=== PATIENT | female | born 1935 | race Caucasian/White ===

== ENCOUNTER 2020-08-10 09:16 | Inpatient (IN) | payer MEDICARE ==
[~2020-08-10] VITALS: Ht 139.7 cm; Wt 53.1 kg
[2020-08-10] MEDS ORDERED: EFFEXOR XR37.5 M1 PO (09:45)
[2020-08-10] MEDS ORDERED: SYNTHROID,LEVO75 MCG PO (09:46)
[2020-08-10] MEDS ORDERED: LOVASTATIN40 MG PO (09:47)
[2020-08-10] MEDS ORDERED: ZETIA10 MG PO (09:47)
[2020-08-10] MEDS ORDERED: NORVASC5 MG PO (09:48)
--- NOTE | 2020-08-10 11:00 | NUR ---
LIV CONSENT VIA POA/SPOUSE IQRA SANDERS. DISCUSSED WITH POA THAT PATIENT IS A FULL CODE. PATIENT HAS A LIVING WILL PRESENT WANTING TO BE A DNR. REVIEW THE DNR CONSENT FORM. PATIENT IS WANTING PATIENT TO BE A DNRCCA. TO BE DISCUSSED WITH COVERING PHYSICIAN WHEN PATIENT IS ADMITTED ON UNIT.
--- NOTE | 2020-08-10 13:30 | NUR ---
ABIMAEL SANDERS a 84 year old F admitted via stretcher from the ADMITTING as a voluntary admission BY TOSHA. Arrived on unit at 1330. ALLERGIES: NKA. Vital signs are: [id number] 182/90. The client signed the following forms with stated understanding: Authorization For The Release of Medical Information, Clothing List, Consent to Voluntary Admission and Hospitalization, Consent and Release Forms/Receipt of Rights, Acknowledgement of Advance Directive Information, Behavioral Health Consent Form, and Informed Consent of Medications. Admitted under the services of Dr. CHRISTIAN RUVALCABA,[facility]. A search was conducted and hazardous articles were removed. Client was oriented to the unit. WILDER ZELAYA PATIENT IS ALERT TO PERSON WITH CONFUSION. LONG/SHORT TERM MEMORY DEFICITS NOTED. MOOD IS IRRITABLE. DENIES ANY HALLUCINATIONS, DELUSIONS, HI/SI OR PAIN. Q 15 MINUTE SAFETY CHECKS MAINTAINED. 1 PERSON ASSIST WITH ACTIVITIES OF DAILY LIVING. CONTINENT OF BOWEL AND BLADDER. SET UP FOR MEALS, INTAKES VARY DEMENDING ON MOOD.
--- NOTE | 2020-08-10 13:40 | NUR ---
CALL PLACED TO HOSPITALIST CELL NUMBER ONE. SPOKE TO . MADE AWARE OF CONSULT FOR MEDICAL MANAGEMENT. MADE AWARE OF ELEVATED BP 182/90 AND HR 88. PT HAD NORVASC 5MG AT [facility] THIS AM PER PT. PT DENIES CHEST PAIN OR HEADACHE. MADE AWARE PT'S DPOAH WISHES FOR PT'S CODE STATUS TO BE DNRCCA, FORM TO BE SIGNED ON UNIT.
[2020-08-10 13:43] VITALS: BP 182/90
--- NOTE | 2020-08-10 13:50 | NUR ---
JESSICA RN OCCUPATIONAL HEALTH ON UNIT TO SEE PT. DNRCCA SIGNED. REVIEWED BLOOD PRESSURE. REVIEWED REASON FOR ADMISSION.
--- NOTE | 2020-08-10 14:29 | NUR ---
NASAL SWAB COLLECTED FOR COVID 19 TESTING AND SENT TO LAB.
[2020-08-10 15:04] LABS: BILIRUBIN Negative (Negative); BLOOD Negative (Negative); CLARITY Clear (Clear); COLOR Yellow (Yellow); GLUCOSE Negative (Negative); KETONE Negative (Negative); LEUKO ESTERASE 1+ (Negative); NITRITE Negative (Negative)
--- NOTE | 2020-08-10 15:28 | NUR ---
P- CONFUSED. EXTREME MOOD LABILITY. POOR SAFETY AWARENESS. PT BECOMES EXTREMELY AGITATED VERY QUICKLY AND DEMONSTRATES UNSAFE AND AGGRESSIVE BEHAVIORS. I- ORIENTATION, MOOD AND BEHAVIORS ASSESSED. ASSESSED PT FOR SI/HI, INTENT OR PLAN. ASSESSED PT FOR S/S HALLUCINATIONS, PARANOIA OR DELUSIONS. MEDICATIONS GIVEN PER ORDERS. ADMISSION ASSESSMENTS COMPLETED. REDIRECTION AND REORIENTATION PROVIDED. REMINDERS GIVEN RE: SAFETY PRECAUTIONS. R- PT IS ALERT TO PERSON, APPROXIMATE PLACE. PT AWARE SHE IS IN THE HOSPITAL BUT UNABLE TO STATE WHICH ONE. MEMORY GAPS NOTED. RESPS EASY AND EVEN ON ROOM AIR. PT NOTED WITH EXTREME MOOD LABILITY. PT RANGES FROM CRYING/TEARFUL TO YELLING, AGITATED AND AGGRESSIVE WITH VULGAR LANGUAGE. PT DEMONSTRATES POOR SAFETY AWARENESS, ATTEMPTING TO THROW WALKER, UPON REDIRECTION PT BECOMES VERY AGGRESSIVE AND AGITATED. MULTIPLE NONPHARMACOLOGICAL ATTEMPTS TO CALM PT PROVE INEFFECTIVE. PT THROWING ANY ITEMS PROVIDED FOR CALMING SUCH FLUIDS AND BOOKS/MAGAZINES WELL WALKER. PT THEN QUICKLY CRIES AND STATES "I'M SORRY". PT YELLING AT STAFF AND PEERS. SCREAMING UNINTELLIGIBLE PHRASES. UNABLE TO CALM PT. PRN ATIVAN 1MG IM GIVEN TO LEFT DELTOID AT 1528. WILL MONITOR FOR EFFECT. P- PLAN TO CONTINUE CURRENT TREATMENT. MONITOR FOR PT RESPONSE TO MEDICATION. MAINTAIN SAFETY. ATTEMPT TO ENGAGE PT IN [place] GROUPS AND ACTIVITIES. ENCOURAGE MEDICATION COMPLIANCE.
--- NOTE | 2020-08-10 15:38 | NUR ---
PM GROUP PT DID NOT ATTEND AFTERNOON GROUP THERAPY. PT WAS JUST ADMITTED TO THE UNIT AND WAS BEING ORIENTED. PT WAS VERY AGITATED AND WAS IN THE QUIET ROOM FOR DESTIMUALATION. WILL ATTEMPT PT ASSESSMENT TOMORROW AM
[2020-08-10 15:51] LABS: BACTERIA 1+; HYALINE CAST 0-2; RBC 0-2 rbc/hpf (0-2)
--- NOTE | 2020-08-10 16:38 | NUR ---
PATIENT IN CALM DEMEANOR, ASSISTED TO BATHROOM FOR TOILETING NEEDS PRIOR TO DINNER. PATIENT SITTING AT TABLE EATING DINNER. NO LONGER AGITATED AND AGGRESSIVE WITH STAFF. PRN ATIVAN EFFECTIVE.
[2020-08-10 20:00] VITALS: BP 148/74
--- NOTE | 2020-08-10 21:23 | NUR ---
PT ANXIOUS, RESTLESS AND TEARFUL. PROVIDED 1:1 EMOTIONAL SUPPORT, OFFERED TOILETING, AND DIVERSIONAL ACTIVITIES. ALL NON-PHARMACOLOGICAL INTERVENTIONS INEFFECTIVE. PRN ATIVAN 1MG PO GIVEN FOR ANXIETY/RESTLESSNESS.
--- NOTE | 2020-08-10 22:23 | NUR ---
PRN ATIVAN 1MG PO SOMEWHAT EFFECTIVE. PT IS RESTING IN CHAIR AT THIS TIME BUT INTERMITTENTLY STATES, "WHEN AM I GOING HOME. I AM LEAVING TOMORROW I DON'T CARE WHAT THE DOCTOR SAYS." PT 1:1 EMOTIONAL SUPPORT, REDIRECTED AND PROVIDED WITH DIVERSIONAL ACTIVITY WHICH WAS EFFECTIVE.
--- NOTE | 2020-08-11 00:29 | NUR ---
PT HAS NO SAFETY AWARENESS, EDUCATED ON USE OF CALL LIGHT AND WALKER WITHOUT EFFECT. PT CONTINUES GETTING UP TO RESTROOM WITHOUT CALLING FOR ASSISTANCE. ADLS X1 STANDBY ASSIST.
--- NOTE | 2020-08-11 02:49 | NUR ---
PT C/O HEADACHE AND LOW BACK PAIN. PRN TYLENOL 650MG GIVEN AT THIS TIME.
--- NOTE | 2020-08-11 03:49 | NUR ---
PT REMAINS AWAKE, CALM, RESTING IN BED. RESP EASY AND UNLABORED. WHEN ASKED IF PRN TYLENOL WAS EFFECTIVE PT STATED, "OH YES. I FEEL MUCH BETTER NOW." NO FURTHER COMPLAINTS VOICED.
--- NOTE | 2020-08-11 05:42 | NUR ---
PT WITH ZERO HOURS OF SLEEP. 24 HR chart check completed.
--- NOTE | 2020-08-11 06:43 | NUR ---
NOTIFIED DR. TRAYLOR OF MANUAL BP 186/92 PULSE 87. NO COMPPLAINTS VOICED FROM PT. PER DR. TRAYLOR GIVE PTS NORVASC 5MG NOW INSTEAD OF 0900 AND MONITOR.
[2020-08-11 06:56] LABS: BASO % 0.5 % (0.0-1.0); EOS # 0.1 10*3/uL (0.0-0.4); EOS % 2.4 % (1.0-4.0); HEMATOCRIT 40.1 % (37.0-47.0); LYMPH # 1.7 10*3/uL (1.3-4.4); MEAN CELL VOLUME 92.2 fl (81.0-99.0); MEAN CORPUSCULAR HGB 29.4 pg (27.0-31.0); MEAN CORPUSCULAR HGB CONC 31.9 g/dl (33.0-37.0); MEAN PLATELET VOLUME 12.8 fl (9.6-12.3); MONO # 0.4 10*3/uL (0.1-1.0); MONO % 7.1 % (3.0-9.0); NEUT # 3.3 10*3/uL (2.3-7.9); PLATELET COUNT AUTOMATED 157 10*3/uL (130-400); RED BLOOD COUNT 4.35 10*6/uL (4.10-5.10); RED CELL DISTRI WIDTH 12.9 % (0-14.5); WHITE BLOOD COUNT 5.5 10*3/uL (4.8-10.8)
[2020-08-11 07:25] VITALS: BP 162/80; BP 186/92
[2020-08-11 07:27] LABS: CHLORIDE 109 mmol/L (98-107); POTASSIUM 3.5 mmol/L (3.5-5.1); SODIUM 141 mmol/L (136-145)
[2020-08-11 07:33] LABS: VITAMIN D, 25-HYDROXY 27.8 ng/mL (30-100)
--- NOTE | 2020-08-11 07:35 | NUR ---
PHYSICAL THERAPY Screen and PT eval received will follow thank you Sherrell Cabrera PT
[2020-08-11 07:43] LABS: ALBUMIN 3.7 gm/dl (3.1-4.5); ALKALINE PHOSPHATASE 61 U/L (45-117); BUN 13 mg/dl (7-24); CHOLESTEROL 240 mg/dL (<200); CREATININE 0.91 mg/dL (0.55-1.02); HDL CHOLESTEROL 73 mg/dl (40-60); LDL CHOLESTEROL 133 mg/dL (9-159); SGOT/AST 29 IU/L (3-35); SGPT/ALT 20 U/L (12-78); TOTAL PROTEIN 6.9 gm/dL (6.4-8.2); TRIGLYCERIDES 168 mg/dl (<150); VLDL CHOLESTEROL 34 mg/dL (6-40)
--- NOTE | 2020-08-11 08:10 | NUR ---
DR GONZALES ROUNDED ON PT VIA TELEHEALTH, NEW ORDERS RECEIVED.
--- NOTE | 2020-08-11 08:39 | NUR ---
Family meeting held via phone with pt's Nathanael. Further pt hx was provided by Nathanael who shared that pt has had a change in behaviors over the last two weeks. Nathanael stated that the behavior change correlates with a med change made by pt's psychiatrist Dr Fowler. He also shared that pt will sleep for extensive periods of time - up to 3 days at a time with waking only long enough to eat and drink small amounts. Pt has also been refusing to shower. Discussed discharge needs for pt. At this time, Nathanael is wanting pt to return home. An 18 year old great-granddaughter who was raised by pt and Nathanael also resides in the home. Nathanael states that as long as pt's violent behaviors resolve, he and their granddaughter can care for pt.
--- NOTE | 2020-08-11 09:02 | NUR ---
PT NON-COMPLIANT WITH FALL PRECAUTIONS. PT WALKING UP AND DOWN THE CARRIZALES WITHOUT ASSISTANCE, WALKING AROUND HER ROOM WITHOUT ASSISTANCE. PT STATED "I DO THIS AT HOME BY MYSELF WITHOUT ANY TROUBLE." WILL CONTINUE TO ENCOURAGE PT TO BE COMPLIANT WITH FALL PRECAUTIONS.
--- NOTE | 2020-08-11 11:50 | NUR ---
DR SIMEON ON UNIT TO ASSESS PT, LABS AND BP LEVELS REVIEWED, NEW ORDERS RECEIVED. WITNESSED BY 2ND RN CHRISTOFER
--- NOTE | 2020-08-11 14:09 | NUR ---
P: PT MOOD IS DEPRESSED, PT ISOLATIVE TO HER ROOM INTERMITTENTLY THROUHGOUT THE DAY. PT PACING AND RESTLESS AT OTHER TIMES. PT TEARFUL. PT NON-COMPLIANT WITH FALL PRECAUTIONS. I: PROVIDE EMOTIONAL SUPPORT AND 1:1 FOR PT TO VOICE FEELINGS, ENCOURAGE MED COMPLIANCE AND PROVIDE MED EDUCATION, ENCOURAGE GROUP PARTICIPATION AND SOCIALIZATION, ENCOURAGE COMPLIANCE WITH FALL PRECAUTIONS. R: PT ALERT TO PERSON, AND PLACE, KNOWS SHE IS IN THE HOSPITAL. PT MED COMPLIANT WITHOUT DIFFICULTY, MED EDUCATION PROVIDED. PT CONTINUES TO ISOLATE TO HER ROOM AT TIMES, RESTLESS AND PACING AT OTHER TIMES. PT CONTINUES TO BE NON-COMPLIANT WITH FALL PRECAUTIONS, REFUSING STANDY ASSISTANCE WITH AMBULATION, GAIT OCCASIONALLY UNSTEADY, STATING "I DO THIS AT HOME BY MYSELF." NO HALLUCINATIONS OR DELUSIONS NOTED. PT DENIES ANY SUICIDAL THOUGHTS. PT CONTINENT OF BOWEL AND BLADDER. P: MONITOR PT BEHAVIORS ON Q15 MIN SAFETY CHECKS, ENCOURAGE MED COMPLIANCE AND PROVIDE MED EDUCATION, ENCOURAGE GROUP PARTICIPATION AND SOCIALZIATION, PROVIDE EMOTIONAL SUPPORT AND 1:1 FOR PT TO VOICE FEELINGS, RE-ORIENT NEEDED.
--- NOTE | 2020-08-11 14:36 | NUR ---
PT REFUSED FULL SHOWER THIS AM BUT WAS PROVIDED WITH HYGIENE SUPPLIES PER HER REQUEST. PT COMPLETED ORAL HYGIENE CARE AND CLEANED SELF UP AT THE SINK. STATES SHE WOULD RATHER WAIT TO GET A FULL SHOWER UNTIL TOMORROW.
--- NOTE | 2020-08-11 15:00 | NUR ---
Occupational Therapy evaluation completed [facility] with full eval to follow. Precautions include inconsitant ADL and mobility performance with behavioral changes, new ww use and unsteady in standing at times. Recommend OT per pOC to establish consistant ADl and mobility performance with SNF v.s. home w/ 24 hr supervision and assist. Thank you. Nataliia Luna OTR/L
--- NOTE | 2020-08-11 16:47 | NUR ---
Nursing screen and Occupational Therapy referral received. Thank you. Nataliia Luna OTR/l
--- NOTE | 2020-08-11 18:10 | NUR ---
PT NON-COMPLIANT WITH FALL PRECAUTIONS, REFUSING STANDBY ASSIST WHEN AMBULATING, ATTEMPTING TO WALK WITH A CUP IN HER HAND WHILE USING THE WHEELED WALKER, PT UP AND DOWN OUT OF CHAIR AND OUT OF BED. STAFF PROVIDED EDUCATION RE: FALL PRECAUTIONS, PT CONTINUES TO REFUSE TO BE COMPLIANT. STAFF WILL CONTINUE TO ENCOURAGE COMPLIANCE AND PROVIDE EDUCATION.
[2020-08-11 19:23] VITALS: BP 156/76
--- NOTE | 2020-08-11 22:56 | NUR ---
P: MOOD-SLIGHTLY DEPRESSED, STATING "A LITTLE, NOT MUCH", CONFUSED AND A LITTLE RESTLESS THIS EVENING. PATIENT VOICES BEING UPSET BECAUSE PUT HER HERE. I: ONE ON ONE FOR EMOTIONAL SUPPORT, REORIENT TO PLACE WITH REDIRECTION PROVIDED. SNACK/DRINK OFFERED. R: EFFECTIVE. PATIENT IS ALERT TO PERSON AND PLACE WITH CONFUSION. LONG/SHORT TERM MEMORY. MOOD IS SAD AND DEPRESSSED. DENIES ANY HALLUCINATIONS, DELUSIONS, HI/SI OR PAIN. AMBULATORY USING WALKER WITH FREQUENT REMINDER/CUEING TO USE WITH ASSIST FOR SAFETY PRECAUTIONS. MEDICATION COMPLAINT WITH EDUCATION PROVIDED. Q 15 MINUTE SAFETY CHECKS MAINTAINED. PATIENT SHOWERED THIS EVENING. CONTINENT OF BOWEL AND BLADDER. SET UP FOR MEALS, INTAKES ARE GOOD WITH ADEQUATE FLUIDS. PATIENT EASILY REDIRECTABLE, PLEASANT DEMEANOR. P: CONTINUE TO MONITOR MOOD, AGGRESSION. PROVIDE ONE ON ONE, REDIRECTION, OFFER INDEPENDENT ACTIVITIES AND SNACK NEEDED.
--- NOTE | 2020-08-12 06:21 | NUR ---
PATIENT OBSERVED ON Q 15 MIN CHECKS TO HAVE SLEPT APPROX 5.5 INTERRUPTED WITH MULTIPLE AWAKENINGS TO EITHER ADJUST HER BED SHEETS OR TO USE THE RESTROOM. NO DISTRESS NOTED.
[2020-08-12 07:11] VITALS: BP 161/76
--- NOTE | 2020-08-12 08:22 | NUR ---
DR SIMEON ON UNIT TO ASSESS PT, UPDATE PROVIDED.
--- NOTE | 2020-08-12 08:45 | NUR ---
DR GONZALES ROUNDED VIA TELEHEALTH, NEW ORDERS RECEIVED.
--- NOTE | 2020-08-12 13:27 | NUR ---
P: PT MOOD IS DEPRESSED. PT ISOLATIVE TO HER ROOM AT TIMES THROUGHOUT THE DAY, RESTLESS AND WANDERING THROUGHOUT THE UNIT AT OTHER TIMES. PT ANXIOUS AND FRETFUL REGARDING HEAD CT DR GONZALES TOLD HER HE WAS ORDERING FOR TOMORROW. I: PROVIDE EMOTIONAL SUPPORT AND 1:1 FOR PT TO VOICE FEELINGS, ENCOURAGE MED COMPLIANCE AND MED EDUCATION, ENCOURAGE GROUP PARTICIPATION AND SOCIALIZATION, PROVIDE EDUCATION ON HEAD CT R: PT ALERT TO PERSON AND PLACE. PT MED COMPLIANT WITHOUT DIFFICUTLY, MED EDUCATION PROVIDED. PT CONTINUES TO VOICE ANXIETY OVER HEAD CT TOMORROW, PT STATES "DO I HAVE TO HAVE IT DONE? MY MOM HAD ONE AND THEN SHE HAD ALL KINDS OF PROBLEMS. CAN MY COME AND BE WITH ME?" STAFF ADVISED PT THAT THE TEST WILL ONLY TAKE A FEW MINUTES AND AT THIS TIME WE DO NOT ALLOW VISITORS IN THE HOSPITAL DUE TO THE PANDEMIC. ADVISED THAT A STAFF MEMEBER WILL ACCOMPANY HER TO THE TESTING. NO HALLUCINATIONS OR DELUSIONS NOTED. PT DENIES ANY SUICIDAL THOUGHTS. PT AMBULATORY WITH WHEELED WALKER, GAIT STEADY. PT CONTINENT OF BOWEL AND BLADDER. P: MONITOR PT BEHAVIORS ON Q15 MIN SAFETY, ENCOURAGE MED COMPLIANCE AND PROVIDE MED EDUCATION, ENCOURAGE GROUP PARTICIPATION AND SOCIALZIATOIN, PROVIDE EMOTIONAL SUPPORT AND 1:1 FOR PT TO VOICE FEELINGS, PRESENT REALITY AQND RE-ORIENT NEEDED.
[2020-08-12 18:59] VITALS: BP 128/55
--- NOTE | 2020-08-12 21:10 | NUR ---
LAYING AWAKE IN BED. REFUSED PM SNACK. MEDICATION COMPLIANT. NONVERBAL WITH ME DURING MEDICATION PASS. EMOTIONAL SUPPORT PROVIDED. WILL MONITOR FOR CHANGES IN MOOD/BEHAVIOR AND Q 15 MINS AND PRN FOR SAFETY
--- NOTE | 2020-08-12 21:14 | NUR ---
HAD 2 PHONE CALLS HARMONY. STATES SHE IS SAD SHE CAN'T GO HOME. DENIES ANY ANGER ISSUES, S/I OR H/I AT THIS TIME. MEDICATION EDUCATION PROVIDED WITH MED PASS. EMOTIONAL SUPPORT PROVIDED. WILL MONITOR FOR CHANGES IN MOOD/BEHAVIOR AND Q 15 MINS AND PRN FOR SAFETY
--- NOTE | 2020-08-13 00:21 | NUR ---
24 HR chart check completed.
[2020-08-13 06:50] VITALS: BP 136/88
--- NOTE | 2020-08-13 06:50 | NUR ---
FINALLY FELL ASLEEP AROUND 0045. SLEPT APROX 6.15 HOURS. IV started left antecubital with #18 angiocath after 1 attempts. The IV site was prepped with Chloraprep. Heparin lock attachED. FOR CT OF HEAD TODAY WITH AND WITHOUT CONTRAST. Sterile dressing applied. Patient tolerated precedure well. Procedure performed according to [facility] policy & procedure. HONEY MAHER
--- NOTE | 2020-08-13 10:02 | NUR ---
PHYSICAL THERAPY Physical Therapy evaluation completed on 3N with full evaluation to follow. Low complexity skilled PT evaluation per chart review and evaluation, [id number]. Recommend physical therapy per plan of care and Home Health upon discharge. Thank you for this referral. Pat Wong,PT,DPT
--- NOTE | 2020-08-13 10:29 | NUR ---
P: PATIENT DEPRESSED, CONFUSED, ISOLATIVE. I: 1:1 FOR EMOTIONAL SUPPORT. ALLOW PATIENT TO VERBALIZE FEELINGS. ENCOURAGE MEDICATION COMPLIANCE AND INTERACTION WITH PEERS. REORIENT/REDIRECT NEEDED. R: EFFEECTIVE. PATIENT IS ALERT TO PERSON AND PLACE AND IS PLEASANTLY CONFUSED. PATIENT IS EXPERIENCING DEPRESSION AT THIS TIME. DENIES SI/HI. PATIENT DENIES ANY HALLUCINATIONS OR DELUSIONS AND DOES NOT APPEAR TO BE RESPONDING TO ANY INTERNAL STIMULI AT THIS TIME. PATIENT RESTLESS AT TIMES. PATIENT IS MEDICATION COMPLIANT WITH EDUCATION PROVIDED. PATIENT IS AMBULATORY WITH WALKER. PATIENT ISOLATIVE TO ROOM. P: WILL CONTINUE TO MONITOR MOODS/BEHAVIORS. Q 15 MINUTE SAFETY CHECKS MAINTAINED. WILL CONTINUE TO ENCOURGE MEDICATION COMPLIANCE AND GROUP INTERACTION.
--- NOTE | 2020-08-13 10:52 | NUR ---
Patient was seen this date for 22 minute OT treatment. Patient identified by name and . Patient standing in doorway upon therapists arrival. Patient returned to sit at EOB to don business insurance agent sock to R LE at SBA and L sock with MOD assist due to confusion. Patient combed her hair sitting at EOB with no LOB noted. Patient completed STS with WW at SBA to perform functional mobility to bathroom sink to wash face and brush teeth. No LOB noted. patient was educated for safety in transfers and with WW use. Patient enquired if she was having tests done. Nurse confirmed that she was having a test later that morning and would not be eating breakfast. Patient returned to EOB. Patient voiced no other needs. Continue with OT POC MEKA Anderson/Natalie
--- NOTE | 2020-08-13 13:20 | NUR ---
PATIENT RESTING IN BED COMFORTABLY. NO S/S OF DISTRESS NOTED. Q 15 MINUTE SAFETY CHECKS MAINTAINED.
--- NOTE | 2020-08-13 14:56 | NUR ---
OCCUPATIONAL THERAPY CO-SIGN I approve of the Occupational Therapy notes written above. Nicolette Willson OTR/L
[2020-08-13 18:00] VITALS: BP 138/87
--- NOTE | 2020-08-13 18:00 | NUR ---
PT C/O NAUSEA. PT INCONTINENT OF BOWEL. ASSISTED TO BATHROOM BY STAFF, PT HAD MEDIUM EMESIS WHILE SITTING ON TOILET. VS ASSESSED, WNL. DR. PIRES MADE AWARE OF ABOVE. N.O RECEIVED ZOFRAN 4MG PO Q6H PRN FOR N/V. PT ASSISTED BACK TO BED FOR REST. HOB ELEVATED, CALL LIGHT WITHIN REACH.
[2020-08-13 19:05] VITALS: BP 138/87
--- NOTE | 2020-08-14 00:40 | NUR ---
REMAINS AWAKE. IN AND OUT OF BED. MEDICATION COMPLIANT WITH 2100PM MEDS. NO C/O OF NAUSEA OR DIARRHEA THIS SHIFT. REFUSED SNACK PROVIDED EARLIER BY STAFF. WILL CONTINUE TO MONITOR FOR CHANGES IN MOOD/BEHAVIOR AND Q15 MINS AND PRN FOR SAFETY
--- NOTE | 2020-08-14 00:42 | NUR ---
24 HR chart check completed.
--- NOTE | 2020-08-14 05:34 | NUR ---
SLEPT POOR. FELL ASLEEP AFTER 3AM.
[2020-08-14 07:52] VITALS: BP 151/57
--- NOTE | 2020-08-14 08:00 | NUR ---
Patient resting quietly with no c/o discomfort. Respirations easy and regular. Vital signs stable. No overt distress. KVNG SANCHEZ
--- NOTE | 2020-08-14 11:13 | NUR ---
AM GROUP PT WAS PRESENT FOR AM GROUP, PAINTING AND LISTENING TO MUSIC. PT PARTICIPATED AND INTERACTED APPROPRIATELY WITH STAFF, STUDENTS, AND PEERS. PT WENT BACK TO ROOM TOWARD END OF GROUP FOR REST BEFORE LUNCH.
--- NOTE | 2020-08-14 11:26 | NUR ---
Pt tearful this AM, stating "I want to go home". Pt appeared anxious during morning assessment by this nurse. Pt provided with emotional support, calm 1:1, reduced environmental stimulation. Medications administered per orders. Pt provided with phone to speak to and granddaughter. Pt receptive to emotional support and calming discussion. States that she is "ok" she just "really misses my ". Pt calmer after discussions with and granddaughter, affect somewhat brighter. Will continue to provide support as appropriate. Will continue to encourage pt to verbalize feelings with staff. Will continue to encourage good intake at meals and participation in group therapy for socialization and support. Q15 min monitoring per policy for safety.
[2020-08-14 20:00] VITALS: BP 138/60
--- NOTE | 2020-08-14 22:20 | NUR ---
Patient alert and oriented to person and place. Mood calm,cooperative and pleasant. Patient denies SI/HI or hallucinations. No signs of any responding to internal stimuli noted at this time. Patient compliant with HS medications without any difficulty. Provided 1:1 for emotional support. Redirected/reoriented when needed. Plan to continue to encourage medication compliance. Will continue to provide emotional support and continue to redirect/reorient when needed/appropriate. Will continue to monitor moods/behaviors. Q 15 minute safety checks continued and maintained. See [facility] flowsheet for further documentation.
--- NOTE | 2020-08-14 23:26 | NUR ---
Patient c/o headache. Medicated with Tylenol po prn for discomfort. Will continue to monitor effectiveness.
--- NOTE | 2020-08-15 05:24 | NUR ---
PT SLEPT 2.5 HOURS INTERRUPTED. 24 HR chart check completed.
[2020-08-15 08:00] VITALS: BP 143/90
--- NOTE | 2020-08-15 08:30 | NUR ---
PATIENT ASSISTED TO BATHROOM, AFTERWARDS PATIENT COMPAINING OF FEEL NAUSEOUS. BLOOD SUGAR CHECKED AND AT 109. GINGERALE PROVIDED AND PRN ZOFRAN GIVEN AT THIS TIME. PATIENT REFUSED BREAKFAST.
--- NOTE | 2020-08-15 09:45 | NUR ---
PATIENT UP IN DINNING ROOM IN GROUP, RESTING IN VALERIA CHAIR. NO FURTHER COMPLAINTS OF BEING NAUSEOUS. PRN ZOFRAN EFFECTIVE.
[2020-08-15 15:49] LABS: BILIRUBIN Negative (Negative); BLOOD Negative (Negative); CLARITY Clear (Clear); COLOR Yellow (Yellow); GLUCOSE Negative (Negative); KETONE Negative (Negative); LEUKO ESTERASE Trace (Negative); NITRITE Negative (Negative); PH 5.5 (4.5-8.0); UROBILINOGEN 0.2 E.U./dl (0.0-1.0)
--- NOTE | 2020-08-15 15:51 | NUR ---
Shift chart check completed.
[2020-08-15 16:29] LABS: BACTERIA TRACE; RBC 0-2 rbc/hpf (0-2); WBC 0-2 wbc/hpf (0-5)
--- NOTE | 2020-08-15 16:48 | NUR ---
P: TEARFUL AND DEPRESSED MOOD, POOR SAFETY AWARENESS, IRRITABLE MOOD, CURSING AT ON PHONE FOR BEING IN THE HOSPITAL. I: ONE ON ONE FOR EMOTIONAL, REDIRECTION/ORIENTATION, PROVIDING SPACE. R: EFFECTIVE. PATIENT IS ALERT TO PERSON,AWARE OF BEING IN THE HOSPITAL, BELIEVES SHE IS IN [facility]. LONG/SHORT TERM MEMORY DEFICITS. MOOD IS DEPRESSED, TEARFUL, IRRITABLE AT TIMES. MEDICATION COMPLIANT. Q 15 MINUTE SAFETY CHECKS MAINTAINED. 1 PERSON ASSIST WITH ACTIVITIES OF DAILY LIVING, CONTINENT OF BOWEL AND BLADDER. SET UP FOR MEALS, INTAKES ARE GOOD WITH ADEQUATE FLUIDS. UP IN WHEELCHAIR, USES WHEELWALKER WITH ASSISTANCE. INTERACTIVE WITH NURSES, PARTICIPATED IN MORNING GROUP SESSION. P: CONTINUE TO MONITOR MOOD AND MEDICATION COMPLAINCE. PROVIDE ONE ON ONE FOR EMOTIONAL SUPPORT, REDIRECTION/ORIENTATION NEEDED.
[2020-08-15 19:30] VITALS: BP 129/55
--- NOTE | 2020-08-15 20:00 | NUR ---
Patient resting quietly with no c/o discomfort. Respirations easy and regular. Vital signs stable. No overt distress. KVNG SANCHEZ
--- NOTE | 2020-08-15 23:41 | NUR ---
The patient has no complaints and is resting comfortably. KVNG SANCHEZ
--- NOTE | 2020-08-16 05:36 | NUR ---
PATIENT OBSERVED ON Q 15 MIN CHECKS TO HAVE SLEPT APPROX 7 HOURS UNINTERRUPTED. NO DISTRESS NOTED.
--- NOTE | 2020-08-16 06:46 | NUR ---
PT AWOKE THIS AM CONFUSED, IRRITABLE. PT SITTING UP IN BED, PAJAMA SHIRT UNBUTTONED DOWN THE FRONT. PT YELLING AT STAFF TO "TURN OFF THE LIGHT SO I CAN SLEEP". PT ASSISTED WITH GETTING DRESSED. ASSISTED BACK TO BED AND CLOSED THE DOOR SLIGHTLY TO BLOCK SOME OF THE HALLWAY LIGHT. PT CONTINUES TO REST QUIETLY AT THIS TIME. Q15 MIN MONITORING FOR SAFETY.
--- NOTE | 2020-08-16 07:30 | NUR ---
OT NOTE Prior to coming to the floor spoke with nurse and reported that therapy was coming to treat this pt. Nurse gave approval. Pt was seen this A.M. 1:1 for 15 minute OT session with RETREAD MOLD OPERATOR and nursing staff present for observation only. Upon arrival pt was supine in bed. Pt identified by name and and had complaints of increased fatigue. Pt transferred supine to sit EOB with SBA. While sitting EOB pt donned B socks with SBA while using compensatory technique of bringing her leg up to knee level. Sit to stand completed from bed level with modA and use of w/w for UE support. Upon inital rise pt presented with retrograde LOB that required modA to correct. Functional mobility was then completed to the bathroom with CGA and use of w/w. There she stood sink side while washing her hands and completing hair care with CGA for safety. While stepping back from the sink pt presented with retrograde LOB that required maxA to correct and also while turning pt had LOB that required maxA to correct. Pt was educated on safety with the walker and safety with turns pt voiced understanding however presented with poor carry over. Functional mobility completed to the dining grant with CGA and use of w/w where she was left sitting upright at the table under [facility] staff supervision. Continue with POC as able. MEKA Walls/Natalie
[2020-08-16 07:40] VITALS: BP 155/53
--- NOTE | 2020-08-16 08:52 | NUR ---
PATIENT SITTING IN DINING ROOM AT THIS TIME. RESPIRATIONS ARE EASY, NON LABORED. NO S/S OF DISTRESS NOTED. MOOD IS IRRITABLE. REFUSED BREAKFAST THIS MORNING, STATES "I AM NOT HUNGRY, I DONT WANT ANYTHING". Q 15 MINUTE SAFETY CHECKS MAINTAINED.
--- NOTE | 2020-08-16 09:00 | NUR ---
Treatment Plan meeting was held this a.m. with LILY Salinas RN, AT and Network Analyst in attendance. Plan for discharge Sunday/. Pt. at this point is to return Home with her Family.
--- NOTE | 2020-08-16 10:30 | NUR ---
DR DAVID ON UNIT TO ASSESS PATIENT AT THIS TIME, UPDATE PROVIDED.
--- NOTE | 2020-08-16 11:58 | NUR ---
AM GROUP PT WAS PRESENT AT THE START OF MORNING GROUP THERAPY BUT REFUSED ANY ACTIVITY OFFERED AND ASKED IF SHE COULD GO TO BED. NURSE CAME AND TOOK PT AND PT DID NOT RETURN.
--- NOTE | 2020-08-16 13:06 | NUR ---
PHYSICAL THERAPY Patient presented to therapy in supine in bed with head of bed flat and bed alarm on. Patient reports no pain or other complaints. Patient gives informed consent for treatment. Patient was identified by name and on wristband. Patient performed supine <> sitting on EOB with MIN A X 2 - CGA. Patient performed sitting on EOB with SBA. Patient STS <> EOB with SBA - CGA. Patient ambulated with Wh WALKER and CGA for 180' x 1 with one episode of LOB to the rear that required MOD A X 1 to correct to an upright position. Patient sat in chair in activity room and performed seated bilateral LE ther ex 2 x 10 reps each in all palnes of movement including LAQs, hip abduction, marches and heel/toe raises. Patient was left in chair in activity room with table in front of her and with U STAFF present and other patients present. Patient was 1:1 with this SUPERVISOR CIGAR MAKING MACHINE for 16 minutes total. MEKA OLVERA WAS PRESENT WITNESS TO THIS TREATMENT. HANSEL GOFF SUPERVISOR CIGAR MAKING MACHINE
--- NOTE | 2020-08-16 15:45 | NUR ---
PM GROUP/REMINISCING PT ATTENDED AFTERNOON GROUP THERAPY AND PARTICIPATED BY REMINISCING ABOUT CHILDHOOD JOVAN TRADITIONS. PT WAS ON TOPIC, CALM AND FOCUSED. PT EXHIBITED NO ADVERSE BEHAVIORS WHILE IN GROUP.
--- NOTE | 2020-08-16 15:56 | NUR ---
Spoke with Pt. Nathanael. Notified of Plans to discharge Pt. Sun/. Declines Home Health.
[2020-08-16 19:05] VITALS: BP 127/46
--- NOTE | 2020-08-16 22:40 | NUR ---
P-ANGRY, DEMANDING, ISOLATIVE I--PROVIDED SNACK AND OFFERED 1:1. MEDICATION PROVIDED WITH EDUCATION. EMOTIONAL SUPPORT PROVIDED. R--AGGITATED SLAMMING WALKER ON FLOOR. ACCEPTED REDIRECT TO HER ROOM.. GOT SELF READY FOR BED AND DID ORAL CARE. MEDICATION COMPLIANT. NO QUESTIONS OFFERED P.. MONITOR FOR CHANGES IN MOOD/BEHAVIOR AND Q 15 MINS AND PRN FOR SAFETY. PROVIDED EMOTIONAL SUPPORT AND REDIRECTION NEEDED
--- NOTE | 2020-08-17 05:44 | NUR ---
PATIENT SLEPT APPROX 3 HOURS INTERRUPTED. MULTIPLE AWAKENINGS OF PATIENT GETTING IN AND OUT OF BED TO READJUST CLOTHING, PILLOWS, OR BLANKETS. PT DISMISSIVE OF STAFF WHEN ASKED IF SHE NEEDS ASSISTANCE, STATES "IM FINE". NO DISTRESS NOTED.
[2020-08-17 07:54] VITALS: BP 126/58
--- NOTE | 2020-08-17 08:00 | NUR ---
PHYSICAL THERAPY Patient presented to therapy in sitting in chair in activity room with U staff present and other patient's present. Patient gives informed consent for treatment. Patient was identified by name and on wristband. Patient has no complaints. Patient performed STS <> chair with SBA - CGA. Patient ambulated with Wh Walker and CGA for 200' x 1 with no LOB and no SOB. Patient sat in chair in activity room and performed seated bilateral LE ther ex 2 x 10 reps each in all planes of movements including LAQs, marches, hip abduction and heel/toe raises for strengthening the LEs in order to improve patient's functional mobility. Patient tolerated treatment without complaints. Patient was left in chair in activity room with table in front of her and [facility] STAFF present. Patient was 1:1 with this LICENSING REGISTRATION EXAMINER for 20 minutes total. HANSEL GOFF LICENSING REGISTRATION EXAMINER
--- NOTE | 2020-08-17 08:25 | NUR ---
OT NOTE Prior to coming to the floor spoke with nurse and reported that therapy was coming to treat this pt. Nurse gave approval. Pt was seen this A.M. 1:1 for 20 minute OT session with DROP PRESS HAND and nursing staff present for observation only. Upon arrival pt was sitting upright in the dining grant. Pt identified by name and and had no complaints at this time. Sit to stand completed from low chair level with Cristhian and use of w/w for UE support. Functional mobility completed to the bathroom with CGA and use of w/w. There she transferred on/off standard commode with CGA followed by standing sink side while washing her hands and completing oral care with CGA for safety. While stepping back from the sink pt had one minor LOB that required Cristhian to correct. Functional mobility was then completed back to the dining grant with CGA and use of w/w. There she was left sitting upright under [facility] staff supervision. Continue with POC as able. MEKA Walls/Natalie
--- NOTE | 2020-08-17 09:00 | NUR ---
Treatment Plan meeting was held this a.m. with LILY Salinas, RN, AT, EMILY-S and Food Service Cashier in attendance. Plan for discharge Sunday. Pt. will return home with Home Health.
--- NOTE | 2020-08-17 11:09 | NUR ---
DR DAVID ON THE UNIT TO ASSESS PT. UPDATE PROVIDED.
--- NOTE | 2020-08-17 11:38 | NUR ---
AM GROUP/EXERCISE AND LIGHT THERAPY PT ATTENDED MORNING GROUP THERAPY AND PARTICIPATED IN ALL ACTIVITIES. PT WAS FOCUSED AND ON TASK. PT EXHIBITED NO ADVERSE BEHAVIORS WHILE IN GROUP. PT IS PLEASANTLY CONFUSED.
--- NOTE | 2020-08-17 13:34 | NUR ---
Spoke with pt's Glenroy to discuss discharge needs for pt. Glenroy stated that he would rather pt not return to Dr Fowler. Provided Glenroy with other options for psychiatric follow-up. Glenroy stated that he would like pt to see Rita Avila NP at [facility].
--- NOTE | 2020-08-17 13:55 | NUR ---
Orders received from Dr. Briseno for [facility]. Pt. has no preference for [facility]. Call Placed to [facility]. Currently not accepting Patients. Call placed to [facility]. They are currently accepting referrals. Referral faxed to [facility].
--- NOTE | 2020-08-17 15:34 | NUR ---
PATIENT COMPLAINING OF BACK PAIN, RATING PAIN 7/10. PRN TYLENOL 650MG PO GIVEN AT THIS TIME.
--- NOTE | 2020-08-17 15:37 | NUR ---
Spoke with Pt. Primary Care Physician office Dr. Johnston. Pt. must call to schedule or her to Schedule follow up appointment. Physician does not permit Hospital Scheduling Follow up appointments. Office staff did provide Fax number to fax discharge Paperwork.
--- NOTE | 2020-08-17 15:44 | NUR ---
PM GROUP/MOVIE PT ATTENDED AFTERNOON GROUP THERAPY AND PARTICIPATED BY WATCHING THE MOVIE AND HAVING A SNACK. PT EXHIBITED NO ADVERSE BEHAVIORS WHILE IN GROUP AND EXHIBITED LITTLE CONFUSION.
--- NOTE | 2020-08-17 16:43 | NUR ---
NO FURTHER COMPLAINTS OF BACK PAIN. PRN TYLENOL EFFECTIVE.
--- NOTE | 2020-08-17 17:14 | NUR ---
NO BOWEL MOVEMENT IN 3 DAYS. PRN MOM 30ML GIVEN PO; PATIENT TOOK HALF OF MEDICATIONS. ONE ON ONE PROVIDE. PATIENT PROVIDED WITH 120CC OF PRUNE JUICE AND PATIENT DRANK ALL THE JUICE.
--- NOTE | 2020-08-17 17:29 | NUR ---
PT ALERT TO PERSON AND APPROXIMATE PLACE WITH CONFUSION AND MEMORY GAPS NOTED. pT STABLE MOOD TODAY. INTERACTIVE WITH PEERS AND STAFF. PARTICIPATING. DENIES HALLUCINATIONS, DELUSIONS, SI/HI, SADNESS AND DEPRESSION. PT HAS BEEN PLEASANT AND CALM. PT LESS RESTLESS THAN PREVIOUS SHIFT. MORE ALERT TODAY THAN WHAT SHE HAS BEEN. PT SHOWERED AND CARE PROVIDED WHEN NEEDED. NO NAPS TAKEN TODAY. PT PARTICIPATED IN GROUP. PT HAS NOT ASKED TO USE THE RESTROOM MUCH BEFORE, FIRST DOSE OF PYRIDIUM RECEIVED TODAY.MEDICATION COMPLIANT WITHOUT DIFFICULTY. BEHAVIORS MONITORED WITH Q15 MINUTE SAFETY CHECKS. CONTINUE TO MONITOR BEHAVIORS AND PROVIDE 1:1 FOR THERAPEUTIC COMMUNICATION. SEE [facility] FLOWSHEET FOR SPECIFIC MONITORING.
[2020-08-17 19:23] VITALS: BP 126/71
--- NOTE | 2020-08-18 04:14 | NUR ---
P-ANXIOUS I-REDIRECTION WITH 1:1 THERAPEUTIC INTERVENTIONS AND PRESENT REALITY. EDUCATE AND ENCOURAGE MEDICATION COMPLIANCE R-PATIENT MEDICATION COMPLIANT AT HS. PATIENT PROVIDED NOURISHMENT AND FLUIDS AT HS. PATIENT INTERACTING WITH PEERS IN DINING ROOM. PATIENT WITH COMPLAINT OF "FEELING ANXIOUS AND WANTING TO GO HOME". THIS NURSE MEDICATED PATIENT WITH ATIVAN 1MG PO AT PATIENT REQUEST. MEDICATOIN WITH EFFECTIVE RESULTS. PATIENT DISROBING IN ROOM STATING "MY GOWN IS WET". PATIENT NOTED TO HAVE DROOL COMING FROM MOUTH. PATIENT WITH NO HALLUCINATIONS OR DELUSIONS. PATIENT WITH NO SUICIDAL OR HOMICIDAL IDEATIONS P-CONTINUE TO ENCOURAGE MEDICATION COMPLIANCE, CONTINUE TO PRESENT REALITY, ENCOURAGE GROUP THERAPY WHILE AWAKE
--- NOTE | 2020-08-18 06:31 | NUR ---
PATIENT SLEPT 8 HOURS OF INTERRRUPTED SLEEP THROUGHOUT SHIFT. Q 15 MINUTE CHECKS MAINTAINED. 24 HR chart check completed.
[2020-08-18 06:59] VITALS: BP 120/68
--- NOTE | 2020-08-18 07:30 | NUR ---
OT NOTE Prior to coming to the floor spoke with nursing staff and reported that therapy was coming to treat this pt, nursing staff gave approval. Pt was seen this A.M. 1:1 for 20 minute OT session with ESL INSTRUCTIONAL ASSISTANT and nursing staff present for observation only. Upon arrival pt was supine in bed. Pt identified by name and and had complaints of increased fatigue. Pt transferred supine to sit EOB with SBA. While sitting EOB pt donned B socks with SBA while using compensatory technique of bringing her leg up to knee level. Sit to stand completed from bed level with Cristhian and use of w/w for UE support, pt required education on proper hand placement for increased I and improved technique. Functional mobility was then completed to the bathroom with CGA and use of w/w. There she stood sink side while washing her hands, face, and completing oral care with CGA for safety. Throughout pt required brief standing rest breaks due to fatigue. Throughout ADL tasks pt presented with F standing balance. Functional mobility then completed back to the EOB for a seated rest break before completing functional mobility to the dining grant with CGA and use of w/w. There she was left sitting upright under [facility] staff supervison. Continue with POC as able. MEKA Walls/Natalie
--- NOTE | 2020-08-18 08:08 | NUR ---
PT AWAKE, ALERT AND VERBAL. RESPS EASY AND EVEN ON ROOM AIR. FED SELF BREAKFAST IN DINING ROOM WITH PEERS. NO DISTRESS NOTED.
--- NOTE | 2020-08-18 09:00 | NUR ---
Treatment Plan meeting was held this a.m. with LILY Salinas, RN, AT, EMILY-S and Tax Examining Technician in attendance. Plan for discharge . Pt. will return home with .
--- NOTE | 2020-08-18 09:02 | NUR ---
PT STATING SHE IS READY TO GO HOME. PT ALERT, ORIENTED TO PERSON, APPROXIMATE TO PLACE. PT AFFECT IS CONGRUENT WITH MOOD. PT HAS BEEN STABLE, COOPERATIVE, PLEASANTLY INTERACTIVE. PT REQUESTING TO GO BACK TO ROOM AFTER BREAKFAST D/T BEING COLD AND WANTING TO COVER UP WITH BLANKETS. PT ASSISTED WITH PERSONAL HYGIENE CARE. PT AMBULATING WITH WHEELED WALKER, GAIT SLOW AND SLIGHTLY UNSTEADY. Q15 MIN MONITORING PER POLICY FOR SAFETY.
--- NOTE | 2020-08-18 10:49 | NUR ---
PHYSICAL THERAPY Patient presented to therapy in supine in bed with head of bed flat. Patient had no report of pain or other complaints. Patient gives informed consent for treatment. Patient was identified by name and on wristband. Patient performed supine to sitting on EOB with SBA. Patient sat on EOB with SBA. Patient completed STS from EOB with MIN A X 2 and verbal cues for hand placement. Patient ambulated with Walker and CGA for 100' x 1 to chair in activity room where she sat with CGA. Patient performed sititng bilateral LE ther ex 2 x 10 reps each in all planes of movement for strengthening the LEs in order to improve patient's functional mobility, includingLAQs, hip abduction, marches and heel/toe raises. Patient was left in chair in activity room with tray table in front of her with breakfast and U staff present. Patient treatment witnessed by MEKA OLVERA. Patient was 1:1 with this BAG INSPECTOR for 20 minutes total.
--- NOTE | 2020-08-18 11:50 | NUR ---
AM GROUP/LIGHT THERAPY AND EXERCISE PT DID NOT ATTEND MORNING GROUP THERAPY. PT WAS IN BED RESTING.
--- NOTE | 2020-08-18 13:43 | NUR ---
Notified pt's Nathanael of pt's discharge scheduled for tomorrow. Nathanael plans on arriving at [facility] at approximately 10:00 to transport pt. Notified RN of this.
--- NOTE | 2020-08-18 15:39 | NUR ---
[facility] Declined. Call Placed to [facility] with no openings due to Virus. Referral sent to [facility] Attn: Leta.
--- NOTE | 2020-08-18 15:40 | NUR ---
PM GROUP PT DID NOT ATTEND AFTERNOON GROUP THERAPY. PT WAS IN BED RESTING.
[2020-08-18 19:04] VITALS: BP 112/90
--- NOTE | 2020-08-18 21:42 | NUR ---
Patient alert and oriented to person and place. Mood calm,cooperative and pleasant. Patient denies SI/HI or hallucinations. No signs of any responding to internal stimuli noted at this time. Patient compliant with HS medications without any difficulty. Provided 1:1 for emotional support. Redirected/reoriented when needed. Plan to continue to encourage medication compliance. Will continue to provide emotional support and continue to redirect/reorient when needed/appropriate. Will continue to monitor moods/behaviors. Q 15 minute safety checks continued and maintained. See [facility] flowsheet for further documentation.
--- NOTE | 2020-08-19 06:21 | NUR ---
SLEPT WELL MOST NIGHT. UP A FEW TIMES TO VOID THEN BACK TO BED. SELPT 8 HOURS
[2020-08-19 06:41] VITALS: BP 123/50
--- NOTE | 2020-08-19 07:10 | NUR ---
OT NOTE Prior to coming to the floor spoke with nursing staff and reported that therapy was coming to treat this pt, nursing staff gave approval. Pt was seen this A.M. 1:1 for 20 minute OT session with nursing staff present for observation only. Upon arrival pt was supine in bed. Pt identified by name and and had complaints of increased fatigue. Pt transferred supine to sit EOB with SBA. While sitting EOB pt donned B socks with SBA. Sit to stand completed from bed level with Cristhian and use of w/w for UE support. Functional mobility completed to the bathroom with CGA and use of w/w. Pt had one LOB while turning that required Cristhian to correct. Pt was educated on safety with the walker and turning technique. Pt transferred on to the standard commode with CGA for safety. Clothing management completed with Cristhian and toilet hygiene completed with SBA while seated. Sit to stand from standard commode with CGA and use of grab bar for UE support. Pt then stood sink side while washing her hands with CGA for safety. Functional mobility completed back to the EOB with CGA and use of w/w. Pt requesting to lay back in bed due to fatigue. Pt transferred sit to supine with SBA. There she was left with bed alarm activated for safety. Continue with POC as able. CHAPITO Walls
--- NOTE | 2020-08-19 07:45 | NUR ---
Patient resting quietly with no c/o discomfort. Pt arouses easily to verbal stimuli, responding appropriately to verbal cues. Respirations easy and regular. Vital signs stable. No overt distress. KVNG SANCHEZ
--- NOTE | 2020-08-19 09:00 | NUR ---
Treatment Plan meeting was held this a.m. with Dr. Briseno via telephone, RN, AT, ADVERTISING OPERATIONS COORDINATOR-S and Global Chief Experience Officer in attendance. Plan for discharge today with return home. Home Health is ordered with [facility] to follow. Start of Care Sunday. Follow up appointments have been scheduled and entered into Discharge Screen. Nurse to review with Family.
[2020-08-19] MEDS ORDERED: RIVASTIGMINE1 EAC2 T (09:05)
[2020-08-19] MEDS ORDERED: ROZEREM8 MG PO (09:05)
[2020-08-19] MEDS ORDERED: RISPERIDONE1 MG PO (09:05)
[2020-08-19] MEDS ORDERED: MIRTAZAPINE15 M2 PO (09:05)
[2020-08-19] MEDS ORDERED: MEMANTINE HCL10 MG PO (09:05)
[2020-08-19] MEDS ORDERED: AMLODIPINE BESYL5 MG PO (09:40)
[2020-08-19] MEDS ORDERED: Synthroid,Levo50 MCG PO (09:40)
--- NOTE | 2020-08-19 10:30 | NUR ---
PT DISCHARGED HOME WITH . ESCORTED OFF UNIT VIA W/C, WITH RN. MET PT'S AT [facility]. DISCUSSED DISCHARGE MEDICATIONS, PHARMACY, FOLLOW UP APPOINTMENTS, AND CALLING COMPREHENSIVE OR U FOR ANY QUESTIONS OR CONCERNS. PT'S VERBALIZES UNDERSTAND, SIGNED ALL DISCHARGE PAPERWORK, AND STATES HE WILL CALL WITH ANY QUESTIONS. PT ASSISTED INTO PRIVATE CAR WITHOUT DIFFICULTY.
--- NOTE | 2020-08-19 10:56 | NUR ---
Discharge Paperwork Faxed to [facility], Primary Care Physician Dr. Johnston and [facility].
--- NOTE | 2020-08-19 11:39 | NUR ---
Patient discharged to home with her . Follow-up will be with Rita Avila WRAP TURNER at [facility]. While at [facility], pt's aggressive and combative behaviors resolved. Pt's cognitive abilities showed improvement. Pt continued to have times of confusion and memory deficits. Pt was pleasant and cooperative at time of discharge.
--- NOTE | 2020-08-20 07:38 | NUR ---
OCCUPATIONAL THERAPY CO-SIGN I approve of the Occupational Therapy notes written above. KIT COLÓN, OTR/L
--- NOTE | 2020-08-20 07:39 | NUR ---
PHYSICAL THERAPY CO-SIGN I approve of the Physical Therapy notes written above. Sherrell Cabrera PT
== END 2020-08-19 10:30 | disposition home health service (06) | DRG 883 ==
LOC: 3N 09:16
PROVIDERS: Counselor Professional; ADMIT Psychiatry & Neurology Psychiatry; ATTEND Psychiatry & Neurology Psychiatry
DX: F63.81 Intermittent explosive disorder (principal); F23 Brief psychotic disorder; F02.81 Dementia in other diseases classified elsewhere, unspecified severity, with behavioral disturbance; E03.9 Hypothyroidism, unspecified; E78.5 Hyperlipidemia, unspecified; F41.9 Anxiety disorder, unspecified; I10 Essential (primary) hypertension; F32.9 Major depressive disorder, single episode, unspecified; G30.9 Alzheimer's disease, unspecified; Z20.828 Contact with and (suspected) exposure to other viral communicable diseases; E87.8 Other disorders of electrolyte and fluid balance, not elsewhere classified; R73.9 Hyperglycemia, unspecified; R73.03 Prediabetes; Z90.710 Acquired absence of both cervix and uterus; Z79.899 Other long term (current) drug therapy